=== PATIENT | female | born 2000 | race American Indian/Alaskan Native ===

== ENCOUNTER 2018-04-26 18:57 | Outpatient (CLI) | payer MEDICAID ==
[2018-04-26 19:22] VITALS: BP 121/73
== END 2018-04-26 20:28 | disposition home or self-care (01) ==
LOC: TRG 18:57
PROVIDERS: ATTEND Obstetrics & Gynecology
DX: O47.1 False labor at or after 37 completed weeks of gestation (principal); Z3A.40 40 weeks gestation of pregnancy
CPT/HCPCS: 59025

== ENCOUNTER 2018-04-29 14:56 | Outpatient (CLI) | payer MEDICAID ==
[2018-05-01 08:16] VITALS: BP 135/80
== END 2018-04-29 17:00 | disposition home or self-care (01) ==
LOC: TRG 14:56
PROVIDERS: ATTEND Obstetrics & Gynecology
DX: O47.1 False labor at or after 37 completed weeks of gestation (principal); Z3A.40 40 weeks gestation of pregnancy
CPT/HCPCS: 59025

== ENCOUNTER 2020-11-08 05:02 | Outpatient (CLI) | payer OTHER ==
[2020-11-08] MEDS ORDERED: LACTATED RINGERS 500 ML IV ONE (05:29)
[2020-11-08 05:37] VITALS: BP 127/61
[2020-11-08] MEDS ORDERED: ALUM-MAG HYDROXIDE-SIMETHICONE 200-200-20MG/5ML ORAL LIQD 30 ML PO PRN (06:47)
[2020-11-08] MEDS ORDERED: ONDANSETRON 4 MG/2 ML INJ IV ONE (06:47)
[2020-11-08 07:23] LABS: Hematocrit 34.3 % (30.3-42.9); Hemoglobin 11.8 gm/dl (10.1-14.3); Mean Corpuscular HGB Conc 34 % (30-34); Mean Corpuscular Volume 85 fl (79-97); Platelet Count 249 K/mm3 (140-440); Red Blood Count 4.04 M/mm3 (3.65-5.03); Red Cell Distribution Width 13.5 % (13.2-15.2)
[2020-11-08 07:47] LABS: Alanine Aminotransferase 9 units/L (7-56); Albumin 3.6 g/dL (3.9-5); Blood Urea Nitrogen 7 mg/dL (7-17); Calcium 9.1 mg/dL (8.4-10.2); Hemolysis Index 1
[2020-11-08 07:48] LABS: BUN/Creatinine Ratio 14
[2020-11-08] MEDS ORDERED: METOCLOPRAMIDE 10 MG/2 ML INJ IV PRN (08:00)
[2020-11-08] MEDS ORDERED: BICITRA ORAL LIQD 30ML PO SCH (08:00)
== END 2020-11-08 08:17 | disposition home or self-care (01) ==
LOC: TRG 05:02 → APU 05:11 → TRG 08:17
PROVIDERS: ATTEND Obstetrics & Gynecology
DX: O26.893 Other specified pregnancy related conditions, third trimester (principal); R07.89 Other chest pain; R10.9 Unspecified abdominal pain; K92.0 Hematemesis; Z3A.33 33 weeks gestation of pregnancy
CPT/HCPCS: 36415; 59025; 80053; 84484; 85027; 86850; 86900; 86901; 93005; 96374; J2405; J7120; 96360

== ENCOUNTER 2021-10-19 06:02 | Emergency (ER) | payer OTHER ==
[2021-10-19 06:08] VITALS: BP 117/70
[2021-10-19] MEDS ORDERED: IBUPROFEN 800 MG TAB PO STA (08:29)
[2021-10-19] MEDS ORDERED: ACETAMINOPHEN 500 MG TAB PO STA (08:29)
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
[2021-10-19 09:13] LABS: HCG Qualitative,Urine Negative (Negative)
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
== END 2021-10-19 10:29 | disposition home or self-care (01) ==
LOC: ED 06:02
DX: R07.89 Other chest pain (principal); M54.2 Cervicalgia; M25.561 Pain in right knee; V49.59XA Passenger injured in collision with other motor vehicles in traffic accident, initial encounter; Y93.89 Activity, other specified; Y92.89 Other specified places as the place of occurrence of the external cause; Y99.8 Other external cause status
CPT/HCPCS: 71046; 72070; 81025; 99283

== ENCOUNTER 2022-03-02 18:44 | Emergency (ER) | payer SELFPAY ==
[2022-03-02 19:44] VITALS: BP 120/74
[2022-03-02] MEDS ORDERED: IBUPROFEN 800 MG TAB PO ONE (21:33)
--- NOTE | 2022-03-02 21:38 | Emergency Department Report ---
ED General Adult HPI - General Chief complaint: Chest Pain Stated complaint: CHEST PAIN/PAIN IN ARM/HARD TO BREATH Time Seen by Provider: 03/02/22 21:32 Source: patient Mode of arrival: Ambulatory Limitations: No Limitations - History of Present Illness Initial comments: Patient 21-year-old -[place] female who presents for anterior chest wall pain for the past year. Patient denies shortness of breath no wheezing no cough no fever no chills. Patient states pain is exacerbated by movement. Pain is relieved by nothing tried. States she seen several doctors and never found the problem. Vital signs noted normal today there is no nausea no vomiting. Last menstrual cycle 1 year ago. Patient denies other complaint. Patient arrived to ED via POV patient is amatory with steady gait with no acute distress at this time. Patient appears nontoxic. Severity scale (0 -10): 10 - Related Data Home Medications Medication Instructions Recorded Confirmed Last Taken Vit-Fe Fumar-FA [ 1 tab PO DAILY 11/08/20 11/08/20 1 Day Ago Vitamin] ~11/07/20 Previous Rx's Medication Instructions Recorded Last Taken Type Famotidine [Acid Controller] 20 mg PO QDAY PRN #30 tablet 11/08/20 Unknown Rx Ondansetron [Zofran Odt] 4 mg PO Q8HR PRN #60 tab.rapdis 11/08/20 Unknown Rx Naproxen 500 mg PO BID PRN #20 tablet 10/19/21 Unknown Rx methocarbamoL [Methocarbamol] 750 - 1,500 mg PO TID PRN #24 10/19/21 Unknown Rx tablet Allergies Allergy/AdvReac Type Severity Reaction Status Date / Time No Known Allergies Allergy Verified 10/19/21 06:08 ED Review of Systems ROS: Stated complaint: CHEST PAIN/PAIN IN ARM/HARD TO BREATH Other details as noted in HPI Constitutional: denies: chills, fever Eyes: denies: eye pain, eye discharge, vision change ENT: denies: ear pain, throat pain Respiratory: denies: cough, shortness of breath, wheezing Cardiovascular: chest pain. denies: palpitations, dyspnea on exertion, syncope, paroxysmal nocturnal dyspnea Endocrine: no symptoms reported Gastrointestinal: denies: abdominal pain, nausea, vomiting, diarrhea Genitourinary: as per HPI Musculoskeletal: as per HPI Skin: denies: rash, lesions Neurological: denies: headache, weakness, paresthesias Psychiatric: denies: anxiety, depression Hematological/Lymphatic: denies: easy bleeding, easy bruising ED Past Medical Hx - Past Medical History Hx Hypertension: No Hx Congestive Heart Failure: No Hx Diabetes: No Hx Deep Vein Thrombosis: No Hx Renal Disease: No Hx Sickle Cell Disease: No Hx Seizures: No Hx Asthma: No Hx COPD: No Hx HIV: No - Surgical History Additional Surgical History: x 1 - Social History Smoking Status: Never Smoker - Medications Home Medications: Home Medications Medication Instructions Recorded Confirmed Last Taken Type Famotidine [Acid Controller] 20 mg PO QDAY PRN #30 tablet 11/08/20 Unknown Rx Ondansetron [Zofran Odt] 4 mg PO Q8HR PRN #60 tab.rapdis 11/08/20 Unknown Rx Vit-Fe Fumar-FA [ 1 tab PO DAILY 11/08/20 11/08/20 1 Day Ago History Vitamin] ~11/07/20 Naproxen 500 mg PO BID PRN #20 tablet 10/19/21 Unknown Rx methocarbamoL [Methocarbamol] 750 - 1,500 mg PO TID PRN #24 10/19/21 Unknown Rx tablet ED Physical Exam - General Limitations: No Limitations General appearance: alert, in no apparent distress - Head Head exam: Present: normocephalic, normal inspection - Eye Eye exam: Present: EOMI Pupils: Present: normal accommodation - ENT ENT exam: Present: mucous membranes moist - Neck Neck exam: Present: normal inspection, full ROM. Absent: tenderness, lymphadenopathy - Respiratory Respiratory exam: Present: normal lung sounds bilaterally, chest wall tenderness (Right anterior lateral ). Absent: wheezes, rhonchi - Cardiovascular Cardiovascular Exam: Present: regular rate, normal rhythm, normal heart sounds. Absent: systolic murmur, diastolic murmur, rubs, gallop - GI/Abdominal GI/Abdominal exam: Present: soft, normal bowel sounds. Absent: bruit, hernia - Rectal Rectal exam: Present: deferred - Extremities Exam Extremities exam: Present: normal inspection, full ROM, normal capillary refill. Absent: tenderness - Back Exam Back exam: Present: normal inspection, full ROM. Absent: CVA tenderness (R), CVA tenderness (L) - Neurological Exam Neurological exam: Present: alert, oriented X3, CN II-XII intact, normal gait - Expanded Neurological Exam Expanded Patient oriented to: Present: person, place, time Speech: Present: fluid speech Motor strength exam: RUE: 5, LUE: 5, RLE: 5, LLE: 5 Best Eye Response ([place]): (4) open spontaneously Best Motor Response ([place]): (6) obeys commands Best Verbal Response ([place]): (5) oriented [place] Total: 15 - Psychiatric Psychiatric exam: Present: normal affect, normal mood - Skin Skin exam: Present: warm, dry, intact, normal color. Absent: rash ED Course Vital Signs 03/02/22 19:41 Temperature 98.6 F Pulse Rate 87 Respiratory 20 Rate Blood Pressure 120/74 [Left] O2 Sat by Pulse 99 Oximetry ED Medical Decision Making - Medical Decision Making Unkown PT elloped Critical care attestation.: If time is entered above; I have spent that time in minutes in the direct care of this critically ill patient, excluding procedure time. ED Disposition Clinical Impression: Cough Chest pain Qualifiers: Chest pain type: unspecified Qualified Code(s): R07.9 - Chest pain, unspecified Disposition: 07 LEFT AWOL/ELOPED Is pt being admited?: No Does the pt Need Aspirin: No Condition: Undetermined Instructions: Nonspecific Chest Pain, Adult Time of Disposition: 02:03
--- NOTE | 2022-03-06 13:10 | Electrocardiograph Report ---
[facility] Test Date: 2022-03-02 Test Time: 19:47:39 Pat Name: FLORENCIA RENO Department: Room: Gender: F Negative Developer: NURSE : 2000 Requested By: BRENNA GILLILAND Order Number: [id number] Reading MD: Ellis Booker Measurements Intervals [place] Rate: 86 P: 40 KS: 207 QRS: 49 QRSD: 79 T: 29 QT: 361 QTc: 431 Interpretive Statements Sinus rhythm Borderline prolonged [place] interval No previous ECG available for comparison Electronically Signed On 03-06-2022 13:09:55 EDT by Ellis Booker
== END 2022-03-04 01:45 | disposition left against medical advice (07) ==
LOC: ED 18:44
DX: R07.89 Other chest pain (principal); R05.9 Cough, unspecified
CPT/HCPCS: 93005; 99281; 99282